=== PATIENT | female | born 1950 | race Caucasian/White ===

== ENCOUNTER 2016-08-06 08:19 | Day surgery (SDC) | payer MEDICARE, BC ==
[2016-08-06] MEDS ORDERED: PROPOFOL 10 MG/ML VIAL IV ONE (14:00)
[2016-08-06] MEDS ORDERED: MIDAZOLAM HCL 2MG/2ML VIAL IV ONE (14:00)
[2016-08-06] MEDS ORDERED: LIDOCAINE 2% MDV (20MG/ML) 20ML VIAL IV ONE (14:00)
--- NOTE | 2016-08-11 09:48 | Operative Note ---
DATE OF SURGERY: 08/06/2016 Surgeon: Serafin Massey DO Referring physician: Dr. Eugenia Rand PREOPERATIVE DIAGNOSIS: Personal history of colon polyps. POSTOPERATIVE DIAGNOSIS: Normal exam. OPERATION: SURVEILLANCE COLONOSCOPY PREPARATION QUALITY: Good. ESTIMATED BLOOD LOSS: None. SPECIMENS: None. PROCEDURE: After informed consent was obtained from the patient, she was placed in the left lateral decubitus position in the endoscopy suite, sedated and monitored by the Department of Anesthesia. Digital rectal exam was unremarkable. A well-lubricated PCF 180 colonoscope was inserted in the rectum and advanced to the cecum. The preparation quality was good. The cecum, ileocecal valve and appendicial orifice were unremarkable. The ascending colon was carefully inspected numerous times, no residual polyp tissue was identified. There were no clips that were visualized. The remainder of the ascending colon, transverse colon, descending colon, sigmoid colon, and rectum were unremarkable. No polyps, mass, lesions, or inflammation was seen. Forward and J-turn views of the rectum and anorectum were unremarkable. The endoscope was straightened, the rectal ampulla deflated. The endoscope was removed. RECOMMENDATIONS: The patient should resume her medications and diet. Based on her history, I would recommend repeat exam in five years. As always, thank you for allowing me to participate in the care of your patient. CC: Dr. Serafin BAINS
== END 2016-08-06 10:45 | disposition home or self-care (01) ==
LOC: HOP 08:19
PROVIDERS: ATTEND Internal Medicine Gastroenterology
DX: Z12.11 Encounter for screening for malignant neoplasm of colon (principal); Z86.010 Personal history of colon polyps
CPT/HCPCS: 00810; G0121